=== PATIENT | male | born 1950 | race Caucasian/White ===

== ENCOUNTER 2021-08-21 15:33 | Emergency (ER) | payer MEDICARE, MEDICAID ==
[~2021-08-21] VITALS: Ht 175.3 cm; Wt 88.5 kg
--- NOTE | 2021-08-21 15:33 | NUR ---
Placed in room 01 . Placed on ekg monitor tech, blood pressure machine and pulse oximeter. To gown for exam. Side rails up. Report given to RAMBO Hurd
--- NOTE | 2021-08-21 15:35 | NUR ---
ER Dr. GUNN at bedside examining patient.
[2021-08-21 15:40] VITALS: BP_SYST 120
--- NOTE | 2021-08-21 15:40 | NUR ---
Patient AAOx4 biba from [facility] after having witnessed syncopal episode x2. no prior medical history. denies hitting head. no trauma noted. per EMS on arrival patient was cool, clammy, diaphoretic. BS 155. noted with 18G IV to left AC. denies any CP or SOB. per EMS NSR with [facility] [employer].
[2021-08-21] MEDS ORDERED: NACL 0.9% 1,000 ML IV ONE (15:45)
--- NOTE | 2021-08-21 15:54 | NUR ---
portable xray at bedside.
[2021-08-21 16:05] LABS: BASOPHILS # (AUTO) 0.1 K/uL (0.0-0.2); BASOPHILS % (AUTO) 0.9 % (0.0-2.0); EOSINOPHILS % (AUTO) 0.7 % (0.0-4.0); HEMATOCRIT 41.5 % (36-54); HEMOGLOBIN 13.9 g/dL (14.0-18.0); LYMPHOCYTES # (AUTO) 1.3 K/uL (1.0-5.5); LYMPHOCYTES % (AUTO) 22.8 % (20.5-51.5); MEAN CORPUSCULAR HEMOGLOBIN 33 pg (27-31); MEAN CORPUSCULAR HGB CONC 33 % (32-36); MEAN CORPUSCULAR VOLUME 100 fL (79.0-98.0); MONOCYTES # (AUTO) 0.6 K/uL (0.0-1.0); NEUTROPHILS # (AUTO) 3.8 K/uL (1.8-7.7); NEUTROPHILS % (AUTO) 65.6 % (40.0-70.0); PLATELET COUNT (AUTO) 216 K/uL (130-430); RED BLOOD CELL COUNT(AUTO) 4.16 MIL/uL (4.2-6.2); RED CELL DISTRIBUTION WIDTH 13.9 % (9.0-15.0); WHITE BLOOD COUNT (AUTO) 5.7 K/uL (4.8-10.8)
[2021-08-21 16:48] LABS: ANION GAP 8 (5-15); CHLORIDE 102 mmol/L (98-107); CREATININE 0.92 mg/dL (0.55-1.30); GLUCOSE 142 mg/dL (70-99); POTASSIUM 3.7 mmol/L (3.5-5.1); SODIUM SERUM 135 mmol/L (136-145); UREA NITROGEN, BLOOD 17 mg/dL (8-21)
[2021-08-21 17:02] LABS: ALANINE AMINOTRANSFERASE 22 U/L (12-78); ALBUMIN 3.7 g/dL (3.4-4.8); ASPARTATE AMINOTRANSFERASE 18 U/L (10-37); LIPASE 31 U/L (73-393); TOTAL BILIRUBIN 0.4 mg/dL (0.0-1.0)
[2021-08-21 17:03] LABS: ALCOHOL, BLOOD < 3 mg/dL (<10)
--- NOTE | 2021-08-21 18:39 | NUR ---
Lab at bedside for 2nd troponin draw.
--- NOTE | 2021-08-21 19:14 | NUR ---
report given to RAMBO Truong who will assume care.
--- NOTE | 2021-08-21 20:01 | NUR ---
Patient given written and verbal discharge instructions and verbalizes understanding. ER MD Meneses discussed with patient the results and treatment provided. Patient in stable condition. ID arm band removed. IV catheter removed intact and dressing applied, no active bleeding. Patient educated to follow up with [facility]. Opportunity for questions provided and answered. Addendum: 08/21/21 at 2001 by [id number] RAMBO Truong
[2021-08-21 20:06] VITALS: BP_SYST 120
== END 2021-08-21 20:01 | disposition home or self-care (01) ==
LOC: SED 15:33
DX: D53.1 Other megaloblastic anemias, not elsewhere classified (principal); R55 Syncope and collapse; E87.1 Hypo-osmolality and hyponatremia; E83.51 Hypocalcemia
CPT/HCPCS: 36415; 71045; 80053; 83690; 83880; 84484; 85025; 93005; 96360; 96361; 99285; G0482